=== PATIENT | female | born 1970 | race American Indian/Alaskan Native ===

== ENCOUNTER 2018-02-12 21:44 | Inpatient (IN) | payer MEDICAID, OTHER ==
[2018-02-12] MEDS ORDERED: Famotidine 20mg/50ml 20 MG in Premixed IV 50 EA IVPB STA (22:02)
--- NOTE | 2018-02-12 22:03 | ED PDOC ---
Arrival/HPI - General Chief Complaint: High Blood Pressure Time Seen by Provider: 02/12/18 22:02 Historian: Patient - History of Present Illness Narrative History of Present Illness (Text): 02/12/18 22:03 Preeti Ramos is a 47 year old female, whose past medical history includes hypertension on Clonidine and HCTZ, who presents to the Emergency department brought in under police custody complaining of vomiting. Patient states her first episode of vomiting was 4 days prior and states she has stopped drinking secondary to vomiting. Patient complaining of vomiting this morning. Patient notes she took Suboxone because she no longer uses Oxycodon. Patient denies any fever, chills, chest pain, shortness of breath, neck pain, headache, dizziness, or any other complaints. Symptom Onset: Gradual Symptom Course: Unchanged Activities at Onset: Light Context: Other (Police custody) Past Medical History - Provider Review Nursing Documentation Reviewed: Yes - Cardiac Hx Cardiac Disorders: Yes Hx Hypertension: Yes - Neurological Hx Seizures: Yes - Psychiatric Hx Substance Use: Yes Family/Social History - Physician Review Nursing Documentation Reviewed: Yes Family/Social History: Unknown Family HX Smoking Status: Heavy Smoker > 10 Cigarettes Daily Hx Alcohol Use: No Hx Substance Use: Yes Substance used: Noemy Allergies/Home Meds Allergies/Adverse Reactions: Allergies No Known Allergies Allergy (Verified 02/12/18 21:47) Review of Systems - Physician Review All systems were reviewed & negative as marked: Yes - Review of Systems Constitutional: Normal. absent: Fevers Eyes: Normal ENT: Normal Respiratory: Normal. absent: SOB, Cough Cardiovascular: Normal. absent: Chest Pain Gastrointestinal: Abdominal Pain, Nausea, Vomiting. absent: Diarrhea Genitourinary Female: Normal. absent: Dysuria, Hematuria, Urine Output Changes Musculoskeletal: Normal. absent: Back Pain, Neck Pain Skin: Normal. absent: Rash Neurological: Normal. absent: Headache, Dizziness Endocrine: Normal Hemo/Lymphatic: Normal Psychiatric: Normal Physical Exam Vital Signs Reviewed: Yes Vital Signs Temp Pulse Resp BP Pulse Ox 02/12/18 21:53 97.9 F 66 18 130/70 100 Temperature: Afebrile Blood Pressure: Normal Pulse: Regular Respiratory Rate: Normal Appearance: Positive for: Non-Toxic Pain Distress: Mild Mental Status: Positive for: Alert and Oriented X 3 - Systems Exam Head: Present: Atraumatic, Normocephalic Pupils: Present: PERRL Extroacular Muscles: Present: EOMI Conjunctiva: Present: Normal Mouth: Present: Dry, Normal Lips (Dry lips) Neck: Present: Normal Range of Motion. No: Meningeal Signs, MIDLINE TENDERNESS , Paraspinal Tenderness Respiratory/Chest: Present: Clear to Auscultation, Good Air Exchange. No: Respiratory Distress, Accessory Muscle Use Cardiovascular: Present: Regular Rate and Rhythm, Normal S1, S2. No: Murmurs Abdomen: Present: Tenderness (Tenderness to epigastric region). No: Distention , Peritoneal Signs Back: Present: Normal Inspection Upper Extremity: Present: Normal Inspection. No: Cyanosis, Edema Lower Extremity: Present: Normal Inspection. No: Edema Neurological: Present: GCS=15, CN II-XII Intact, Speech Normal Skin: Present: Warm, Dry, Normal Color. No: Rashes Psychiatric: Present: Alert, Oriented x 3, Normal Insight, Normal Concentration Medical Decision Making ED Course and Treatment: 02/12/18 22:03 Impression: 47 year old female brought in under police custody for abdominal pain and vomiting. Plan: -- CBC, CMP, lipase -- IV fluids -- Zofran -- Pepcid -- Reassess and disposition Progress Notes: 02/12/18 22:[address] Ramsey pending labs and reassess for final dispo. - Medication Orders Current Medication Orders: Discontinued Medications Famotidine 20 mg/ (Miscellaneous) 50 mls @ 100 mls/hr IVPB STAT STA Stop: 02/12/18 22:31 Ondansetron HCl (Zofran Inj) 4 mg IVP STAT STA Stop: 02/12/18 22:04 - Scribe Statement The provider has reviewed the documentation as recorded by the Pooja Monroe Provider Scribe Attestation: All medical record entries made by the Scribe were at my direction and personally dictated by me. I have reviewed the chart and agree that the record accurately reflects my personal performance of the history, physical exam, medical decision making, and the department course for this patient. I have also personally directed, reviewed, and agree with the discharge instructions and disposition. Disposition/Present on Arrival - Present on Arrival Any Indicators Present on Arrival: No History of DVT/PE: No History of Uncontrolled Diabetes: No Urinary Catheter: No History of Decub. Ulcer: No History Surgical Site Infection Following: None - Disposition Have Diagnosis and Disposition been Completed?: No Diagnosis: Substance abuse Disposition Time: 22:52 Condition: STABLE Referrals: Dre Huynh, [Primary Care Provider] - Follow up with primary Forms: [employer] (Greek)
--- NOTE | 2018-02-12 22:56 | ED PDOC ---
Physical Exam Vital Signs Reviewed: Yes Vital Signs Temp Pulse Resp BP Pulse Ox 02/13/18 02:14 148/75 02/12/18 21:53 97.9 F 66 18 130/70 100 Temperature: Afebrile Blood Pressure: Normal Pulse: Regular Respiratory Rate: Normal Appearance: Positive for: Non-Toxic, Comfortable Pain Distress: None Mental Status: Positive for: Alert and Oriented X 3 - Systems Exam Head: Present: Atraumatic, Normocephalic Pupils: Present: PERRL Extroacular Muscles: Present: EOMI Conjunctiva: Present: Normal Mouth: Present: Moist Mucous Membranes Neck: Present: Normal Range of Motion Respiratory/Chest: Present: Clear to Auscultation, Good Air Exchange. No: Respiratory Distress, Accessory Muscle Use Cardiovascular: Present: Regular Rate and Rhythm, Normal S1, S2. No: Murmurs Abdomen: Present: Tenderness (RLQ tenderness). No: Distention, Peritoneal Signs Back: Present: Normal Inspection Upper Extremity: Present: Normal Inspection. No: Cyanosis, Edema Lower Extremity: Present: Normal Inspection. No: Edema Neurological: Present: GCS=15, CN II-XII Intact, Speech Normal Skin: Present: Warm, Dry, Normal Color. No: Rashes Psychiatric: Present: Alert, Oriented x 3, Normal Insight, Normal Concentration Medical Decision Making ED Course and Treatment: 02/12/18 23:00 Case endorsed to me by Dr. Perez, pending labs, re-evaluation, and disposition. Pt, whose past medical history includes seizure and hypertension on Clonidine and HCTZ, presented under police custody for vomiting x4 days with associated abdominal pain. 02/13/18 03:12 CT Abdomen and Pelvis shows: Lung bases: Small cysts or bullae are visualized within the right lung. Mediastinum: There is a small hiatal hernia. ABDOMEN: Liver: No hepatic mass. There is low density identified within the medial segment of the left lobe of the liver adjacent to the falciform ligament. This is a common location for fatty infiltration. Gallbladder and bile ducts: There is a tiny isodense noncalcified gallstone or polyp within the gallbladder. Pancreas: Contiguous with the tail of the pancreas and isodense to the spleen, there is a 2.2 x 2.0 cm possible splenule, although a pancreatic lesion is difficult to exclude. Spleen: See above. Adrenals: There is a 2.2 x 1.7 cm isodense left adrenal nodule. Kidneys and ureters: A few small hypodense left renal cysts are identified. One of these cysts at the lower pole the left kidney measures 1.0 cm. Stomach and bowel: No obstruction. No mucosal thickening. PELVIS: Appendix: The appendix is mildly distended with gas measuring 7-8 mm. There is no surrounding acute inflammatory change. Bladder: There is nonspecific wall thickening of the bladder. Reproductive: A few masses are identified within the uterine wall, the largest on the right side measuring 3.8 x 2.7 x 3.2 cm. These masses are suggestive of fibroids. ABDOMEN and PELVIS: Intraperitoneal space: No free air. Bones/joints: Degenerative changes are visualized at L4-5. There is posterior disc bulging at L5-S1. Soft tissues: There is minimal herniation of fat into the umbilicus. Vasculature: There is mild atherosclerosis of the aortic bifurcation. No abdominal aortic aneurysm. Lymph nodes: No enlarged lymph nodes. IMPRESSION: 1. There is a 2.2 x 1.7 cm isodense left adrenal nodule. This can be further evaluated with a nonemergent MRI with/without contrast. 2. A few masses are identified within the uterine wall, suggestive of fibroids. 3. The appendix is mildly distended with gas measuring 7-8 mm. There is no surrounding acute inflammatory change. Clinical correlation is recommended. 4. A few small hypodense left renal cysts are identified. 5. There is a tiny noncalcified gallstone or polyp within the gallbladder. 6. There is nonspecific wall thickening of the bladder. 7. Contiguous with the tail of the pancreas and isodense to the spleen, there is a 2.2 x 2.0 cm possible splenule, although a pancreatic lesion is difficult to exclude. This can further evaluated with MRI. 8. Additional CT findings described above. 02/13/18 03:[address] scan results noted. On examination, pt with RLQ tenderness, clinically suggestive of appendicitis. 02/13/18 04:27 Case discussed with director surgical extension forester, who is aware and agrees to evaluate pt. Call placed to Dr. Delcid's service. 02/13/18 05:01 Case discussed with medical intern extension forester, who is aware and agrees with plan. 02/13/18 05:[address] Delcid, surgeon extension forester, made aware. States he will consult on case. 02/13/18 05:[address] Amrit Saavedra, who is aware and agrees with plan. Accepts pt in to hospitalist service. Pt will go to [facility] observation abdominal pain, r /o appendicitis. - Lab Interpretations Lab Results: 02/12/18 22:53 02/12/18 22:53 Lab Results 02/12/18 23:30: Urine Color Yellow, Urine Appearance Sl cloudy, Urine pH 6.0, Ur Specific [place] >= 1.030, Urine Protein 100 H, Urine Glucose (UA) Negative, Urine Ketones 40 H, Urine Blood Moderate H, Urine Nitrate Negative, Urine Bilirubin Moderate H, Urine Urobilinogen 0.2, Ur Leukocyte Esterase Small H, Urine RBC 2 - 5, Urine WBC 5 - 10, Ur Epithelial Cells 4 - 5, Urine Bacteria Small, Urine Other Trichomonas 02/12/18 22:53: Sodium 139, Potassium 3.6, Chloride 101, Carbon Dioxide 21, Anion Gap 20, BUN 18, Creatinine 1.0, Est GFR ( Amer) > 60, Est GFR (Non- Af Amer) 59, Random Glucose 95, Calcium 10.1, Total Bilirubin 0.9, AST 46 H, ALT 21, Alkaline Phosphatase 150 H, Total Protein 8.5 H, Albumin 4.7, Globulin 3.8, Albumin/Globulin Ratio 1.2, Lipase 19 L 02/12/18 22:53: WBC 14.5 H, RBC 4.75, Hgb 13.6, Hct 40.6, MCV 85.5, MCH 28.6, MCHC 33.5, RDW 14.7 H, Plt Count 397, MPV 9.5, Gran % 81.4 H, Lymph % (Auto) 12.9 L, [place] % (Auto) 5.5, Eos % (Auto) 0.1 L, Baso % (Auto) 0.1, Gran # 11.75 H , Lymph # (Auto) 1.9, [place] # (Auto) 0.8 H, Eos # (Auto) 0.0, Baso # (Auto) 0.02 I have reviewed the lab results: Yes - RAD Interpretation Radiology Orders: 02/13/18 00:46 ABD & PELVIS IV CONTRAST ONLY [CT] Stat Lens Cutter: Radiologist - Medication Orders Current Medication Orders: Acetaminophen (Tylenol 325mg Tab) 650 mg PO Q4 PRN PRN Reason: Pain, Mild (1-3) Docusate Sodium (Colace) 100 mg PO BID HORACE Lactated Ringer's (Lactated Ringer's) 1,000 mls @ 110 mls/hr IV .Q9H6M HORACE Ketorolac Tromethamine (Toradol) 15 mg IVP Q6 PRN PRN Reason: Pain, moderate (4-7) Ondansetron HCl (Zofran Inj) 4 mg IVP Q4 PRN PRN Reason: Nausea/Vomiting Discontinued Medications Famotidine 20 mg/ (Miscellaneous) 50 mls @ 100 mls/hr IVPB STAT STA Stop: 02/12/18 22:31 Last Admin: 02/12/18 22:17 Dose: 100 mls/hr eMAR Start Stop Document 02/12/18 22:17 SS (Rec: 02/12/18 23:17 SS [id number]) Intravenous Solution Start Date 02/12/18 Start Time 22:17 End Date 02/12/18 End time 22:47 Total Infusion Time 30 Metronidazole (Flagyl) 500 mg in 100 mls @ 100 mls/hr IVPB STAT STA PRN Reason: Protocol Stop: 02/13/18 04:44 Last Admin: 02/13/18 05:15 Dose: 100 mls/hr eMAR Start Stop Document 02/13/18 05:15 SS (Rec: 02/13/18 05:15 SS [id number]) Intravenous Solution Start Date 02/13/18 Start Time 05:15 End Date 02/13/18 End time 06:15 Total Infusion Time 60 Ceftriaxone Sodium (Rocephin 1 Gram Ivpb) 1 gm in 100 mls @ 200 mls/hr IV ONCE STA PRN Reason: Protocol Stop: 02/13/18 04:15 Last Admin: 02/13/18 04:25 Dose: 200 mls/hr eMAR Start Stop Document 02/13/18 04:25 SS (Rec: 02/13/18 04:25 SS [id number]) Intravenous Solution Start Date 02/13/18 Start Time 04:25 End Date 02/13/18 End time 04:55 Total Infusion Time 30 Ondansetron HCl (Zofran Inj) 4 mg IVP STAT STA Stop: 02/12/18 22:04 Last Admin: 02/12/18 22:17 Dose: 4 mg IVP Administration Document 02/12/18 22:17 SS (Rec: 02/12/18 23:17 SS [id number]) Charges for Administration # of IVP Administrations 1 Disposition/Present on Arrival - Present on Arrival Any Indicators Present on Arrival: No History of DVT/PE: No History of Uncontrolled Diabetes: No Urinary Catheter: No History of Decub. Ulcer: No History Surgical Site Infection Following: None - Disposition Have Diagnosis and Disposition been Completed?: Yes Diagnosis: Abdominal pain Disposition: HOSPITALIZED Disposition Time: 05:07 Isolation: Airborne Patient Problems: Current Active Problems Problem Status Onset Substance abuse Acute Condition: STABLE
[2018-02-12 22:58] LABS: BASO # 0.02 K/mm3 (0.0-2.0); BASO % 0.1 % (0.0-3.0); EOS % 0.1 % (1.5-5.0); GRAN # 11.75 (1.4-6.5); GRAN % 81.4 % (50.0-68.0); HEMOGLOBIN 13.6 g/dL (12.0-16.0); LYMPH # 1.9 (1.2-3.4); LYMPH % 12.9 % (22.0-35.0); MEAN CELL VOLUME 85.5 fl (80.0-105.0); MEAN CORPUSCULAR HEMOGLOBIN 28.6 pg (25.0-35.0); MEAN CORPUSCULAR HGB CONC 33.5 g/dl (31.0-37.0); MEAN PLATELET VOLUME 9.5 fl (7.0-11.0); MONO # 0.8 (0.1-0.6); MONO % 5.5 % (1.0-6.0); RBC 4.75 10^6/uL (3.5-6.1); RED CELL DISTRIBUTION WIDTH 14.7 % (11.5-14.5); WHITE BLOOD COUNT 14.5 10^3/ul (4.5-11.0)
[2018-02-12 23:11] LABS: ALB/GLOB RATIO 1.2 (1.1-1.8); ALBUMIN 4.7 g/dL (3.0-4.8); ALT/SGPT 21 U/L (7-56); AST/SGOT 46 U/L (14-36); BLOOD UREA NITROGEN 18 mg/dL (7-21); CALCIUM 10.1 mg/dL (8.4-10.5); GFR AFRICAN-AMERICAN > 60; GFR NON-AFRICAN AMERICAN 59; LIPASE 19 U/L (23-300)
[2018-02-12 23:52] LABS: URINE BILIRUBIN MODERATE (NEGATIVE); URINE BLOOD MODERATE (NEGATIVE); URINE GLUCOSE (UA) NEGATIVE (NEGATIVE); URINE LEUKOCYTE ESTERASE SMALL Leu/uL (NEGATIVE); URINE PROTEIN 100 mg/dL (<30 mg/dL); URINE UROBILINOGEN 0.2 E.U./dL (<1 E.U./dL)
[2018-02-12 23:55] LABS: URINE APPEARANCE SL CLOUDY (CLEAR); URINE COLOR YELLOW (YELLOW)
[2018-02-13 00:08] LABS: URINE BACTERIA SMALL (NEG)
[2018-02-13] MEDS ORDERED: Iohexol 350 MG/100 ML VIAL ONE (01:17)
--- NOTE | 2018-02-13 03:03 | CT ---
EXAM: CT Abdomen and Pelvis With Intravenous Contrast EXAM DATE/TIME: 02/13/2018 12:46 AM CLINICAL HISTORY: The patient age is 47 years old and is female; Pain; Abdominal pain Facility exam id and description: Ct abdpelciv abd pelvis iv contrast only TECHNIQUE: Axial computed tomography images of the abdomen and pelvis with intravenous contrast. All CT scans at this facility use at least one of these dose optimization techniques: automated exposure control; mA and/or kV adjustment per patient size (includes targeted exams where dose is matched to clinical indication); or iterative reconstruction. Coronal and sagittal reformatted images were created and reviewed. COMPARISON: No relevant prior studies available. FINDINGS: Lung bases: Small cysts or bullae are visualized within the right lung. Mediastinum: There is a small hiatal hernia. ABDOMEN: Liver: No hepatic mass. There is low density identified within the medial segment of the left lobe of the liver adjacent to the falciform ligament. This is a common location for fatty infiltration. Gallbladder and bile ducts: There is a tiny isodense noncalcified gallstone or polyp within the gallbladder. Pancreas: Contiguous with the tail of the pancreas and isodense to the spleen, there is a 2.2 x 2.0 cm possible splenule, although a pancreatic lesion is difficult to exclude. Spleen: See above. Adrenals: There is a 2.2 x 1.7 cm isodense left adrenal nodule. Kidneys and ureters: A few small hypodense left renal cysts are identified. One of these cysts at the lower pole the left kidney measures 1.0 cm. Stomach and bowel: No obstruction. No mucosal thickening. PELVIS: Appendix: The appendix is mildly distended with gas measuring 7-8 mm. There is no surrounding acute inflammatory change. Bladder: There is nonspecific wall thickening of the bladder. Reproductive: A few masses are identified within the uterine wall, the largest on the right side measuring 3.8 x 2.7 x 3.2 cm. These masses are suggestive of fibroids. ABDOMEN and PELVIS: Intraperitoneal space: No free air. Bones/joints: Degenerative changes are visualized at L4-5. There is posterior disc bulging at L5-S1. Soft tissues: There is minimal herniation of fat into the umbilicus. Vasculature: There is mild atherosclerosis of the aortic bifurcation. No abdominal aortic aneurysm. Lymph nodes: No enlarged lymph nodes. IMPRESSION: 1. There is a 2.2 x 1.7 cm isodense left adrenal nodule. This can be further evaluated with a nonemergent MRI with/without contrast. 2. A few masses are identified within the uterine wall, suggestive of fibroids. 3. The appendix is mildly distended with gas measuring 7-8 mm. There is no surrounding acute inflammatory change. Clinical correlation is recommended. 4. A few small hypodense left renal cysts are identified. 5. There is a tiny noncalcified gallstone or polyp within the gallbladder. 6. There is nonspecific wall thickening of the bladder. 7. Contiguous with the tail of the pancreas and isodense to the spleen, there is a 2.2 x 2.0 cm possible splenule, although a pancreatic lesion is difficult to exclude. This can further evaluated with MRI. 8. Additional CT findings described above.
[2018-02-13] MEDS ORDERED: metroNIDAZOLE IV 500 mg/100 ml 500 MG/100 ML BAG IVPB STA (03:45)
[2018-02-13] MEDS ORDERED: cefTRIAXone 1 gm 1 GM/100 ML BAG IV STA (03:46)
--- NOTE | 2018-02-13 05:09 | CP.PCM.CON ---
<Stephany Galdamez - Last Filed: 02/13/18 08:26> History of Present Illness - History of Present Illness History of Present Illness: GENERAL SURGERY CONSULT NOTE FOR DR. DELCID 47yo F with PMHx of HTN, epilepsy, opiod abuse presents to the ED with abdominal pain. She states that her pain began about 4 days ago and she had some vomiting at that time. No vomiting today. Has not had a BM in 2 days. Her pain is located in the suprapubic, LLQ, RLQ area. Pt states that she hasn't eaten or drank anything in 4 days due to using "Noemy". Pt states that she went to [facility] 8 days ago for similar symptoms. Per the pt, they wanted to do a CT but she signed out AMA before the CT was done. Pt is now brought in by police for medical clearance. PMHx: HTN, epilepsy Surgeries: none Allergies: none Medications: clonidine, lisinopril, HCTZ Social history: denies etoh, smokes 1/2 PPD, uses Noemy Review of Systems - Review of Systems All systems: reviewed and no additional remarkable complaints except (as per hpi ) Past Patient History - Past Social History Smoking Status: Heavy Smoker > 10 Cigarettes Daily Alcohol: None Drugs: Opiates - CARDIAC Hx Cardiac Disorders: Yes Hx Hypertension: Yes - NEUROLOGICAL Hx Seizures: Yes - PSYCHIATRIC Hx Substance Use: Yes Meds Allergies/Adverse Reactions: Allergies Allergy/AdvReac Type Severity Reaction Status Date / Time No Known Allergies Allergy Verified 02/12/18 21:47 Physical Exam - Constitutional Appears: Well, Non-toxic - Head Exam Head Exam: ATRAUMATIC, NORMAL INSPECTION - Eye Exam Eye Exam: EOMI, Normal appearance - Respiratory Exam Respiratory Exam: NORMAL BREATHING PATTERN. absent: Respiratory Distress - Cardiovascular Exam Cardiovascular Exam: +S1, +S2 - GI/Abdominal Exam GI & Abdominal Exam: Soft, Tenderness (mild tenderness suprapubic and LLQ). absent: Distended, Firm, Guarding, Rebound, Rigid Additional comments: No McBurney point tenderness, Negative Rovsing sign - Neurological Exam Neurological exam: Alert, Oriented x3 - Psychiatric Exam Psychiatric exam: Normal Affect, Normal Mood - Skin Skin Exam: Dry, Normal Color, Warm Results - Vital Signs Recent Vital Signs: Last Vital Signs Temp 97.9 F 02/12/18 21:53 Pulse 66 07/02/18 21:53 Resp 18 02/12/18 21:53 BP 148/75 02/13/18 02:14 Pulse Ox 100 02/12/18 21:53 - Labs Result Diagrams: 02/13/18 08:00 02/12/18 22:53 Labs: Laboratory Results - last 24 hr 02/12/18 02/12/18 02/12/18 22:53 22:53 23:30 WBC 14.5 H RBC 4.75 Hgb 13.6 Hct 40.6 MCV 85.5 MCH 28.6 MCHC 33.5 RDW 14.7 H Plt Count 397 MPV 9.5 Gran % 81.4 H Lymph % (Auto) 12.9 L [place] % (Auto) 5.5 Eos % (Auto) 0.1 L Baso % (Auto) 0.1 Gran # 11.75 H Lymph # (Auto) 1.9 [place] # (Auto) 0.8 H Eos # (Auto) 0.0 Baso # (Auto) 0.02 Sodium 139 Potassium 3.6 Chloride 101 Carbon Dioxide 21 Anion Gap 20 BUN 18 Creatinine 1.0 Est GFR ( Amer) > 60 Est GFR (Non-Af Amer) 59 Random Glucose 95 Calcium 10.1 Total Bilirubin 0.9 AST 46 H ALT 21 Alkaline Phosphatase 150 H Total Protein 8.5 H Albumin 4.7 Globulin 3.8 Albumin/Globulin Ratio 1.2 Lipase 19 L Urine Color Yellow Urine Appearance Sl cloudy Urine pH 6.0 Ur Specific Lindsay >= 1.030 Urine Protein 100 H Urine Glucose (UA) Negative Urine Ketones 40 H Urine Blood Moderate H Urine Nitrate Negative Urine Bilirubin Moderate H Urine Urobilinogen 0.2 Ur Leukocyte Esterase Small H Urine RBC 2 - 5 Urine WBC 5 - 10 Ur Epithelial Cells 4 - 5 Urine Bacteria Small Urine Other Trichomonas Assessment & Plan - Assessment and Plan (Free Text) Assessment: 47yo F with PMHx of HTN, epilepsy, opiod abuse presents to the ED with abdominal pain. Surgery consulted for rule out appendicitis - Afebrile, VSS - Leukocytosis WBC 14.5 - CT: appendix is mildly distended with gas measuring 7-8 mm. There are no surrounding acute inflammatory change. There is nonspecific wall thickening of the bladder. A few masses within the uterine wall suggesting fibroids, the largest on the right side measuring 3.8 x 2.7 x 3.2 cm. - Pt not tender in RLQ, pt tender more suprapubic/LLQ - Unlikely appendicitis given location of pain and tenderness and lack of inflammatory changes around appendix on imaging. Pt's pain may be related to withdrawal, UTI, fibroids - Serial abdominal exams - Discussed plan with Dr. Farhana Galdamez PGY-4 <Nura Delcid - Last Filed: 02/15/18 15:14> Meds - Medications Medications: Current Medications Acetaminophen (Tylenol 325mg Tab) 650 mg PO Q4 PRN PRN Reason: Pain, Mild (1-3) Last Admin: 02/15/18 04:20 Dose: 650 mg Clonazepam (Klonopin) 0.5 mg PO BID PRN; Protocol PRN Reason: opitate withdrawl symptoms Last Admin: 02/15/18 15:03 Dose: 0.5 mg Hydralazine HCl (Apresoline) 10 mg IVP Q6 PRN PRN Reason: Systolic blood pressure >180 Hydrochlorothiazide (Hydrodiuril) 25 mg PO DAILY [facility] Last Admin: 02/15/18 10:31 Dose: 25 mg Ketorolac Tromethamine (Toradol) 15 mg IVP Q6 PRN PRN Reason: Pain, moderate (4-7) Last Admin: 02/14/18 06:10 Dose: 15 mg Lisinopril (Zestril) 10 mg PO DAILY [facility] Last Admin: 02/15/18 10:31 Dose: 10 mg Multivitamins/Minerals (Therapeutic-M Tab) 1 tab PO 0800 [facility] Ondansetron HCl (Zofran Inj) 4 mg IVP Q4 PRN PRN Reason: Nausea/Vomiting Last Admin: 02/14/18 09:02 Dose: 4 mg Pantoprazole Sodium (Protonix Ec Tab) 20 mg PO 0600 [facility] Results - Vital Signs Recent Vital Signs: Last Vital Signs Temp 98.5 F 02/15/18 06:00 Pulse 45 L 02/15/18 14:00 Resp 18 02/15/18 06:00 BP 172/85 H 02/15/18 14:00 Pulse Ox 99 02/15/18 06:00 - Labs Result Diagrams: 02/14/18 07:20 02/14/18 07:20 Attending/Attestation - Attestation I have personally seen and examined this patient.: Yes I have fully participated in the care of the patient.: Yes I have reviewed all pertinent clinical information: Yes Notes (Text): Pt was seen and examined at bedside Agree with above note and assessment Pt with lower abdominal pain since last 3 weeks Denies any complaints at present Labs and radiology reviewed Ass: Abdominal Pain, UTI Plan : IV antibiotics c.w current mx No General surgical intervention required at present Plan d.w pt in detail Risk and benefit explained in detail.
--- NOTE | 2018-02-13 06:00 | CP.PCM.HP ---
<Daljit Waite - Last Filed: 02/13/18 09:32> History of Present Illness - History of Present Illness History of Present Illness: CC: Abdominal pain HPI: Ms. Ramos is a 47 y.o female with a past medical history of hypertension, drug abuse, and epilepsy who presents to us from correction due to 2 days of complaints of abdominal pain. Patient admits to oxycodone addiction, from which she feels she is withdrawing. Of note, patient was admitted to [facility] 2 weeks ago for similar complaints, but left AMA before an abdominal CT could be performed. Patient states she has not had any pills since coming to correction a few days ago. PMHx: HTN, drug abuse and epilepsy PSHx: none Allergies: NKDA Social: abuse of oxycodone, 1/2 pack tobacco per day for 2 years, would snort heroin in the past Family Hx: DM Meds: Dilantin 300, Lisinopril 15, clonidine 0.2 TID, but need to confirm dosages before beginning therapy Present on Admission - Present on Admission Any Indicators Present on Admission: No Review of Systems - Review of Systems Systems not reviewed;Unavailable: Acuity of Condition - Constitutional Constitutional: Chills, Headache, Malaise - Gastrointestinal Gastrointestinal: absent: Change in Stool Character, Diarrhea, Melena - Genitourinary Genitourinary: absent: Pyuria, Voiding Freq/Small Amts - Menstruation Menstruation: Currently Menstual, Normal Menses Past Patient History - Past Social History Smoking Status: Heavy Smoker > 10 Cigarettes Daily Alcohol: None Drugs: Opiates - CARDIAC Hx Cardiac Disorders: Yes Hx Hypertension: Yes - NEUROLOGICAL Hx Seizures: Yes - PSYCHIATRIC Hx Substance Use: Yes Meds Home Medications: Home Medication List Medication Instructions Recorded Confirmed Type cloNIDine [Catapres] 0.2 mg PO BID 7 Days tab 02/14/18 Rx hydroCHLOROthiazide [Hydrodiuril] 25 mg PO DAILY 7 Days tab 02/14/18 Rx Allergies/Adverse Reactions: Allergies Allergy/AdvReac Type Severity Reaction Status Date / Time No Known Allergies Allergy Verified 02/12/18 21:47 Physical Exam - Constitutional Appears: Agitated - Head Exam Head Exam: ATRAUMATIC, NORMOCEPHALIC - Eye Exam Eye Exam: Normal appearance Pupil Exam: NORMAL ACCOMODATION, PERRL - Respiratory Exam Respiratory Exam: Clear to Auscultation Bilateral, NORMAL BREATHING PATTERN. absent: Chest Wall Tenderness - Cardiovascular Exam Cardiovascular Exam: +S1, +S2. absent: Clicks - GI/Abdominal Exam GI & Abdominal Exam: Guarding, Rebound, Rigid Results - Vital Signs Recent Vital Signs: Last Vital Signs Temp 97.9 F 02/12/18 21:53 Pulse 70 02/13/18 05:33 Resp 18 02/13/18 05:33 BP 100/60 02/13/18 05:33 Pulse Ox 98 02/13/18 05:33 - Labs Result Diagrams: 02/13/18 08:00 02/13/18 08:00 Assessment & Plan - Assessment and Plan (Free Text) Plan: Ms. Ramos is a 47 y.o female with a past medical history of hypertension, drug abuse, and epilepsy who presents to us from correction due to 2 days of complaints of abdominal pain. Patient admits to oxycodone addiction, from which she feels she is withdrawing. Of note, patient was admitted to [facility] 2 weeks ago for similar complaints, but left AMA before an abdominal CT could be performed. Patient states she has not had any pills since coming to correction a few days ago. Abdominal pain secondary to uterine fibroids vs appendicitis vs opioid withdrawal f/u blood culture and urine culture Surgery consult - empiric Ceftriaxone begun Medication noncompliance Tobacco, substance abuse Hx of HTN Hx of epilepsy - vitals q8 to evaluate electrolytes Confirm home meds- Dilantin 300, clonidine 0.2, Lisinopril 15 mg <Kay Saavedra N - Last Filed: 02/14/18 18:54> Results - Vital Signs Recent Vital Signs: Last Vital Signs Temp 98.5 F 02/14/18 06:00 Pulse 43 L 02/14/18 16:57 Resp 18 02/14/18 06:00 BP 138/60 02/14/18 16:57 Pulse Ox 100 02/14/18 06:00 - Labs Result Diagrams: 02/14/18 07:20 02/14/18 07:20 Labs: Laboratory Results - last 24 hr 02/14/18 02/14/18 07:20 07:20 WBC 9.8 D RBC 4.18 Hgb 11.6 L Hct 35.9 L MCV 85.9 MCH 27.8 MCHC 32.3 RDW 14.7 H Plt Count 325 MPV 9.0 Gran % 71.2 H Lymph % (Auto) 23.1 [place] % (Auto) 5.2 Eos % (Auto) 0.3 L Baso % (Auto) 0.2 Gran # 6.96 H Lymph # (Auto) 2.3 [place] # (Auto) 0.5 Eos # (Auto) 0.0 Baso # (Auto) 0.02 Sodium 139 Potassium 3.6 Chloride 104 Carbon Dioxide 24 Anion Gap 15 BUN 15 Creatinine 0.8 Est GFR ( Amer) > 60 Est GFR (Non-Af Amer) > 60 Random Glucose 105 Calcium 9.4 Total Bilirubin 0.5 AST 18 ALT 18 Alkaline Phosphatase 118 Total Protein 7.4 Albumin 4.0 Globulin 3.3 Albumin/Globulin Ratio 1.2
[2018-02-13] MEDS: Lactated Ringer's 1,000 ML IV SCH ×2 (06:15→21:45)
[2018-02-13 08:09] VITALS: BMI 30.9
[2018-02-13 08:15] LABS: BASO # 0.02 K/mm3 (0.0-2.0); BASO % 0.1 % (0.0-3.0); GRAN # 11.86 (1.4-6.5); GRAN % 82.2 % (50.0-68.0); HEMOGLOBIN 12.8 g/dL (12.0-16.0); LYMPH % 13.7 % (22.0-35.0); MEAN CELL VOLUME 85.9 fl (80.0-105.0); MEAN CORPUSCULAR HEMOGLOBIN 28.3 pg (25.0-35.0); MEAN CORPUSCULAR HGB CONC 32.9 g/dl (31.0-37.0); MEAN PLATELET VOLUME 9.2 fl (7.0-11.0); MONO # 0.6 (0.1-0.6); RBC 4.53 10^6/uL (3.5-6.1); RED CELL DISTRIBUTION WIDTH 14.9 % (11.5-14.5); WHITE BLOOD COUNT 14.4 10^3/ul (4.5-11.0)
[2018-02-13 08:35] LABS: ALB/GLOB RATIO 1.2 (1.1-1.8); ALBUMIN 4.5 g/dL (3.0-4.8); ALT/SGPT 26 U/L (7-56); AST/SGOT 20 U/L (14-36); BLOOD UREA NITROGEN 19 mg/dL (7-21); CALCIUM 9.8 mg/dL (8.4-10.5); GFR AFRICAN-AMERICAN > 60; GFR NON-AFRICAN AMERICAN 59
--- NOTE | 2018-02-13 09:27 | CP.PCM.PN ---
<Danielle Hdez - Last Filed: 02/13/18 15:58> Subjective - Date & Time of Evaluation Date of Evaluation: 02/13/18 Time of Evaluation: 09:19 - Subjective Subjective: General Surgery Progress Note for Dr. Delcid Patient seen and examined at bedside. Pt continues have some abdominal pain but denies pain in the RLQ. She expressed concern of receiving her hypertension and antibiotic medications. No acute events overnight. Pt complained of nausea/ vomiting but is tolerating a clear liquid diet this am. Denies fevers, chills, dizziness, headache, constipation, diarrhea or dysuria. Objective - Vital Signs/Intake and Output Vital Signs (last 24 hours): Temp Pulse Resp BP Pulse Ox 98.2 F 60 18 144/78 100 02/13/18 07:17 02/13/18 07:17 02/13/18 07:17 02/13/18 07:17 02/13/18 07:17 - Medications Medications: Current Medications Acetaminophen (Tylenol 325mg Tab) 650 mg PO Q4 PRN PRN Reason: Pain, Mild (1-3) Clonazepam (Klonopin) 0.5 mg PO BID PRN; Protocol PRN Reason: opitate withdrawl symptoms Docusate Sodium (Colace) 100 mg PO BID [facility] Lactated Ringer's (Lactated Ringer's) 1,000 mls @ 110 mls/hr IV .Q9H6M [facility] Last Admin: 02/13/18 06:15 Dose: 110 mls/hr Ceftriaxone Sodium (Rocephin 1 Gram Ivpb) 1 gm in 100 mls @ 100 mls/hr IVPB DAILY [facility] PRN Reason: Protocol Ketorolac Tromethamine (Toradol) 15 mg IVP Q6 PRN PRN Reason: Pain, moderate (4-7) Ondansetron HCl (Zofran Inj) 4 mg IVP Q4 PRN PRN Reason: Nausea/Vomiting - Labs Labs: 02/13/18 08:00 02/13/18 08:00 - Constitutional Appears: Well, No Acute Distress - Head Exam Head Exam: NORMAL INSPECTION - Eye Exam Eye Exam: Normal appearance - ENT Exam ENT Exam: Mucous Membranes Moist - Respiratory Exam Respiratory Exam: NORMAL BREATHING PATTERN - Cardiovascular Exam Cardiovascular Exam: REGULAR RHYTHM - GI/Abdominal Exam GI & Abdominal Exam: Soft, Tenderness (LLQ), Normal Bowel Sounds. absent: Distended - Extremities Exam Extremities Exam: Normal Inspection. absent: Calf Tenderness - Neurological Exam Neurological Exam: Alert, Awake - Psychiatric Exam Psychiatric exam: Normal Affect, Normal Mood. absent: Flat Affect Assessment and Plan - Assessment and Plan (Free Text) Assessment: 47 y/o F with abdominal pain, r/o appendicitis Plan: - Unlikely pain is due to appendix - No surgical intervention at this time - Advance diet as tolerated - Discussed with Dr. Farhana Hdez DO PGY1 <Nura Delcid - Last Filed: 02/15/18 15:15> Objective - Vital Signs/Intake and Output Vital Signs (last 24 hours): Temp Pulse Resp BP Pulse Ox 98.5 F 45 L 18 172/85 H 99 02/15/18 06:00 02/15/18 14:00 02/15/18 06:00 02/15/18 14:00 02/15/18 06:00 Intake and Output: 02/15/18 02/15/18 06:59 18:59 Intake Total 660 Balance 660 - Medications Medications: Current Medications Acetaminophen (Tylenol 325mg Tab) 650 mg PO Q4 PRN PRN Reason: Pain, Mild (1-3) Last Admin: 02/15/18 04:20 Dose: 650 mg Clonazepam (Klonopin) 0.5 mg PO BID PRN; Protocol PRN Reason: opitate withdrawl symptoms Last Admin: 02/15/18 15:03 Dose: 0.5 mg Hydralazine HCl (Apresoline) 10 mg IVP Q6 PRN PRN Reason: Systolic blood pressure >180 Hydrochlorothiazide (Hydrodiuril) 25 mg PO DAILY [facility] Last Admin: 02/15/18 10:31 Dose: 25 mg Ketorolac Tromethamine (Toradol) 15 mg IVP Q6 PRN PRN Reason: Pain, moderate (4-7) Last Admin: 02/14/18 06:10 Dose: 15 mg Lisinopril (Zestril) 10 mg PO DAILY [facility] Last Admin: 02/15/18 10:31 Dose: 10 mg Multivitamins/Minerals (Therapeutic-M Tab) 1 tab PO 0800 [facility] Ondansetron HCl (Zofran Inj) 4 mg IVP Q4 PRN PRN Reason: Nausea/Vomiting Last Admin: 02/14/18 09:02 Dose: 4 mg Pantoprazole Sodium (Protonix Ec Tab) 20 mg PO 0600 [facility] - Labs Labs: 02/14/18 07:20 02/14/18 07:20 Attending/Attestation - Attestation I have personally seen and examined this patient.: Yes I have fully participated in the care of the patient.: Yes I have reviewed all pertinent clinical information, including history, physical exam and plan: Yes Notes (Text): Pt was seen and examined at bedside Agree with above note and assessment Pt with lower abdominal pain since last 3 weeks Denies any complaints at present Labs and radiology reviewed Ass: Abdominal Pain, UTI, NO clinical evidence of appendicitis Plan : IV antibiotics c.w current mx No General surgical intervention required at present Plan d.w pt in detail Risk and benefit explained in detail.
[2018-02-13] MEDS ORDERED: cefTRIAXone 1 gm 1 GM/100 ML BAG IVPB SCH (10:00)
[2018-02-14] MEDS ORDERED: Lactated Ringer's 1,000 ML IV SCH (06:08)
[2018-02-14] MEDS: Lactated Ringer's 1,000 ML IV SCH (06:12)
[2018-02-14 07:36] LABS: BASO # 0.02 K/mm3 (0.0-2.0); BASO % 0.2 % (0.0-3.0); EOS % 0.3 % (1.5-5.0); GRAN # 6.96 (1.4-6.5); GRAN % 71.2 % (50.0-68.0); HEMOGLOBIN 11.6 g/dL (12.0-16.0); LYMPH # 2.3 (1.2-3.4); LYMPH % 23.1 % (22.0-35.0); MEAN CELL VOLUME 85.9 fl (80.0-105.0); MEAN CORPUSCULAR HEMOGLOBIN 27.8 pg (25.0-35.0); MEAN CORPUSCULAR HGB CONC 32.3 g/dl (31.0-37.0); MONO # 0.5 (0.1-0.6); MONO % 5.2 % (1.0-6.0); RBC 4.18 10^6/uL (3.5-6.1); RED CELL DISTRIBUTION WIDTH 14.7 % (11.5-14.5); WHITE BLOOD COUNT 9.8 10^3/ul (4.5-11.0)
[2018-02-14 07:46] LABS: ALB/GLOB RATIO 1.2 (1.1-1.8); ALT/SGPT 18 U/L (7-56); AST/SGOT 18 U/L (14-36); BLOOD UREA NITROGEN 15 mg/dL (7-21); CALCIUM 9.4 mg/dL (8.4-10.5); GFR AFRICAN-AMERICAN > 60; GFR NON-AFRICAN AMERICAN > 60
--- NOTE | 2018-02-14 08:50 | CP.PCM.PN ---
<Renuka Saldanaaf - Last Filed: 02/14/18 08:47> Subjective - Date & Time of Evaluation Date of Evaluation: 02/14/18 Time of Evaluation: 08:47 - Subjective Subjective: Surgery: Dr. Delcid Pt seen and examined. No acute overnight events. States she's feeling better and her abdominal pain has resolved. She is tolerating her liquid diet & wants to eat solid food. Denies N/V, F/C. Objective - Vital Signs/Intake and Output Vital Signs (last 24 hours): Temp Pulse Resp BP Pulse Ox 98.5 F 48 L 18 190/84 H 100 02/14/18 06:00 02/14/18 08:39 02/14/18 06:00 02/14/18 08:39 02/14/18 06:00 Intake and Output: 02/14/18 02/14/18 06:59 18:59 Intake Total 1200 Balance 1200 - Medications Medications: Current Medications Acetaminophen (Tylenol 325mg Tab) 650 mg PO Q4 PRN PRN Reason: Pain, Mild (1-3) Clonazepam (Klonopin) 0.5 mg PO BID PRN; Protocol PRN Reason: opitate withdrawl symptoms Last Admin: 02/14/18 02:18 Dose: 0.5 mg Clonidine HCl (Catapres) 0.3 mg PO TID [facility] Docusate Sodium (Colace) 100 mg PO BID [facility] Last Admin: 02/13/18 18:40 Dose: Not Given Hydrochlorothiazide (Hydrodiuril) 25 mg PO DAILY [facility] Ketorolac Tromethamine (Toradol) 15 mg IVP Q6 PRN PRN Reason: Pain, moderate (4-7) Last Admin: 02/14/18 06:10 Dose: 15 mg Lisinopril (Zestril) 20 mg PO DAILY [facility] Multivitamins/Minerals (Therapeutic-M Tab) 1 tab PO 0800 [facility] Ondansetron HCl (Zofran Inj) 4 mg IVP Q4 PRN PRN Reason: Nausea/Vomiting Last Admin: 02/13/18 10:08 Dose: 4 mg - Labs Labs: 02/14/18 07:20 02/14/18 07:20 - Constitutional Appears: Well, No Acute Distress - Head Exam Head Exam: ATRAUMATIC, NORMOCEPHALIC - ENT Exam ENT Exam: Mucous Membranes Moist - Respiratory Exam Respiratory Exam: NORMAL BREATHING PATTERN - Cardiovascular Exam Cardiovascular Exam: Bradycardia - GI/Abdominal Exam GI & Abdominal Exam: Soft. absent: Distended, Guarding, Tenderness, Rebound - Neurological Exam Neurological Exam: Alert, Awake, Oriented x3 - Skin Skin Exam: Dry, Warm Assessment and Plan - Assessment and Plan (Free Text) Assessment: 47F with abdominal pain, resolved Plan: - advance to heart healthy diet - no further surgical intervention - pt cleared for DC from surgical standpoint - d/w Dr. Farhana Saldana, PGY-3 <Nura Delcid - Last Filed: 02/15/18 15:25> Objective - Vital Signs/Intake and Output Vital Signs (last 24 hours): Temp Pulse Resp BP Pulse Ox 98.5 F 45 L 18 172/85 H 99 02/15/18 06:00 02/15/18 14:00 02/15/18 06:00 02/15/18 14:00 02/15/18 06:00 Intake and Output: 02/15/18 02/15/18 06:59 18:59 Intake Total 660 Balance 660 - Medications Medications: Current Medications Acetaminophen (Tylenol 325mg Tab) 650 mg PO Q4 PRN PRN Reason: Pain, Mild (1-3) Last Admin: 02/15/18 04:20 Dose: 650 mg Clonazepam (Klonopin) 0.5 mg PO BID PRN; Protocol PRN Reason: opitate withdrawl symptoms Last Admin: 02/15/18 15:03 Dose: 0.5 mg Hydralazine HCl (Apresoline) 10 mg IVP Q6 PRN PRN Reason: Systolic blood pressure >180 Hydrochlorothiazide (Hydrodiuril) 25 mg PO DAILY [facility] Last Admin: 02/15/18 10:31 Dose: 25 mg Ketorolac Tromethamine (Toradol) 15 mg IVP Q6 PRN PRN Reason: Pain, moderate (4-7) Last Admin: 02/14/18 06:10 Dose: 15 mg Lisinopril (Zestril) 10 mg PO DAILY [facility] Last Admin: 02/15/18 10:31 Dose: 10 mg Multivitamins/Minerals (Therapeutic-M Tab) 1 tab PO 0800 [facility] Ondansetron HCl (Zofran Inj) 4 mg IVP Q4 PRN PRN Reason: Nausea/Vomiting Last Admin: 02/14/18 09:02 Dose: 4 mg Pantoprazole Sodium (Protonix Ec Tab) 20 mg PO 0600 [facility] - Labs Labs: 02/14/18 07:20 02/14/18 07:20 Attending/Attestation - Attestation I have fully participated in the care of the patient.: Yes I have reviewed all pertinent clinical information, including history, physical exam and plan: Yes Notes (Text): Pt is improving clinically Tolerating diet and No c/o abdominal pain No General surgical intervention required at present Plan d.w pt by primary team in detail
--- NOTE | 2018-02-14 14:43 | CP.PCM.DIS ---
<Belén Sim L - Last Filed: 02/14/18 15:11> Provider - Provider Date of Admission: 02/13/18 05:02 Attending physician: Darshan Raymundo MD Time Spent in preparation of Discharge (in minutes): 45 Diagnosis - Discharge Diagnosis (2) Abdominal pain Status: Resolved Priority: Medium (3) Acute drug withdrawal syndrome Status: Resolved Priority: Medium (4) Abnormal finding on CT scan Status: Chronic Priority: Medium (5) Uterine fibroid Status: Chronic Priority: Medium (6) Adrenal nodule Status: Chronic Priority: Medium (7) History of hypertension Status: Chronic Priority: Medium Hospital Course - Lab Results Lab Results: Most Recent Lab Values WBC 9.8 10^3/ul (4.5-11.0) D 02/14/18 07:20 RBC 4.18 10^6/uL (3.5-6.1) 02/14/18 07:20 Hgb 11.6 g/dL (12.0-16.0) L 02/14/18 07:20 Hct 35.9 % (36.0-48.0) L 02/14/18 07:20 MCV 85.9 fl (80.0-105.0) 02/14/18 07:20 MCH 27.8 pg (25.0-35.0) 02/14/18 07:20 MCHC 32.3 g/dl (31.0-37.0) 02/14/18 07:20 RDW 14.7 % (11.5-14.5) H 02/14/18 07:20 Plt Count 325 10^3/uL (120.0-450.0) 02/14/18 07:20 MPV 9.0 fl (7.0-11.0) 02/14/18 07:20 Gran % 71.2 % (50.0-68.0) H 02/14/18 07:20 Lymph % (Auto) 23.1 % (22.0-35.0) 02/14/18 07:20 [place] % (Auto) 5.2 % (1.0-6.0) 02/14/18 07:20 Eos % (Auto) 0.3 % (1.5-5.0) L 02/14/18 07:20 Baso % (Auto) 0.2 % (0.0-3.0) 02/14/18 07:20 Gran # 6.96 (1.4-6.5) H 02/14/18 07:20 Lymph # (Auto) 2.3 (1.2-3.4) 02/14/18 07:20 [place] # (Auto) 0.5 (0.1-0.6) 02/14/18 07:20 Eos # (Auto) 0.0 (0.0-0.7) 02/14/18 07:20 Baso # (Auto) 0.02 K/mm3 (0.0-2.0) 02/14/18 07:20 Sodium 139 mmol/L (132-148) 02/14/18 07:20 Potassium 3.6 mmol/L (3.6-5.0) 02/14/18 07:20 Chloride 104 mmol/L (98-107) 02/14/18 07:20 Carbon Dioxide 24 mmol/L (21-33) 02/14/18 07:20 Anion Gap 15 (10-20) 02/14/18 07:20 BUN 15 mg/dL (7-21) 02/14/18 07:20 Creatinine 0.8 mg/dl (0.7-1.2) 02/14/18 07:20 Est GFR ( Amer) > 60 02/14/18 07:20 Est GFR (Non-Af Amer) > 60 02/14/18 07:20 Random Glucose 105 mg/dL (70-110) 02/14/18 07:20 Calcium 9.4 mg/dL (8.4-10.5) 02/14/18 07:20 Total Bilirubin 0.5 mg/dL (0.2-1.3) 02/14/18 07:20 AST 18 U/L (14-36) 02/14/18 07:20 ALT 18 U/L (7-56) 02/14/18 07:20 Alkaline Phosphatase 118 U/L (38-126) 02/14/18 07:20 Total Protein 7.4 g/dL (5.8-8.3) 02/14/18 07:20 Albumin 4.0 g/dL (3.0-4.8) 02/14/18 07:20 Globulin 3.3 gm/dL 02/14/18 07:20 Albumin/Globulin Ratio 1.2 (1.1-1.8) 02/14/18 07:20 Lipase 19 U/L (23-300) L 02/12/18 22:53 Urine Color Yellow (YELLOW) 02/12/18 23:30 Urine Appearance Sl cloudy (CLEAR) 02/12/18 23:30 Urine pH 6.0 (4.7-8.0) 02/12/18 23:30 Ur Specific [place] >= 1.030 (1.005-1.035) 02/12/18 23:30 Urine Protein 100 mg/dL (<30 mg/dL) H 02/12/18 23:30 Urine Glucose (UA) Negative mg/dL (NEGATIVE) 02/12/18 23:30 Urine Ketones 40 mg/dL (NEGATIVE) H 02/12/18 23:30 Urine Blood Moderate (NEGATIVE) H 02/12/18 23:30 Urine Nitrate Negative (NEGATIVE) 02/12/18 23:30 Urine Bilirubin Moderate (NEGATIVE) H 02/12/18 23:30 Urine Urobilinogen 0.2 E.U./dL (<1 E.U./dL) 02/12/18 23:30 Ur Leukocyte Esterase Small Cindi/uL (NEGATIVE) H 02/12/18 23:30 Urine RBC 2 - 5 /hpf (0-2) 02/12/18 23:30 Urine WBC 5 - 10 /hpf (0-6) 02/12/18 23:30 Ur Epithelial Cells 4 - 5 /hpf (0-5) 02/12/18 23:30 Urine Bacteria Small (NEG) 02/12/18 23:30 Urine Other Trichomonas 02/12/18 23:30 - Hospital Course Hospital Course: Patient is a 47 year female with a past medical history hypertension, uterine fibroids, heroin abuse who was admitted for evaluation and treatment of abdominal pain. With the use of physical examinations, lab work, and imaging the patient was diagnosed with and treated for abdominal pain secondary to opiate withdrawl, along with the patients chronic medical conditions. During their hospital stay the patient was seen by general surgery (Dr. Martines) for a distended appendix on CT scans whose recommendations were both appreciated and utilized in the care for this patient. It was determined that no acute surgical intervention was warranted at that time. During their hospital stay the patient underwent a CT abdomen/pelvis and MRI abdomen/pelvis which were reviewed, appreciated, and utilized in the management of the patients clinical course. CT abdomen/pelvis showed there is a 2.2 x 1.7 cm isodense left adrenal nodule, a few masses are identified within the uterine wall, suggestive of fibroids, midly distended appendix with gas measuring 7-8 mm, a few small hypodense left renal cysts, a tiny noncalcified gallstone or polyp within the gallbladder, nonspecific wall thickening of the bladder contiguous with the tail of the pancreas and isodense to the spleen. MRI of abdomen/pelvis with IV contast showed no acute findings, accessory splenic tissue, and simple renal cysts. Patient was treated with antihypertensive medications, analgesic, amongst other empiric/therapeutic medications. At this time the patient is medically stable for discharge under police custody. Patient understands and appreciates discharge plan. Patient instructed to follow up with physican within 3-5 days from discharge from hospital. Furthermore, the patient is instructed to take medications as prescribed and to return to emergency room for evaluation of intractable headache, fever, chills, dizziness, chest pain, shortness of breath , abdominal pain, nausea, vomiting, diarrhea, constipation, and urinary symptoms. This is a brief summary of the patients hospital course. Please see patient chart for full details. Discharge Exam - Additional Findings Additional findings: - Constitutional Appears: Well, No Acute Distress - Head Exam Head Exam: NORMAL INSPECTION - Eye Exam Eye Exam: Normal appearance - ENT Exam ENT Exam: Mucous Membranes Moist - Respiratory Exam Respiratory Exam: NORMAL BREATHING PATTERN - Cardiovascular Exam Cardiovascular Exam: REGULAR RHYTHM, +s1, +s2 - GI/Abdominal Exam GI & Abdominal Exam: Soft, Normal Bowel Sounds. absent: Distended - Extremities Exam Extremities Exam: Normal Inspection. absent: Calf Tenderness - Neurological Exam Neurological Exam: Alert, Awake - Psychiatric Exam Psychiatric exam: Normal Affect, Normal Mood. absent: Flat Affect Discharge Plan - Discharge Medications Prescriptions: cloNIDine [Catapres] 0.2 mg PO BID 7 Days tab hydroCHLOROthiazide [Hydrodiuril] 25 mg PO DAILY 7 Days tab - Follow Up Plan Condition: STABLE Disposition: RELEASED IN POLICE CUSTODY Additional Instructions: Patient Instructions: 1.Take medications as prescribed. 2. Please follow up with primary care doctor within 3 days. You will need your blood pressure rechecked within 3 days. Please get any refills needed with your primary care doctor. You will need a repeat MRI of your abdomen and pelvis in 12 months for an incidental finding of adrenal adenoma, please follow up with your primary care doctor for this. 3. Return to the emergency room for evaluation of intractable headache, fever, chills, dizziness, chest pain, shortness of breath, abdominal pain, nausea, vomiting, diarrhea, constipation, and urinary symptoms. <Rachel Hargrove R - Last Filed: 02/14/18 18:59> Provider - Provider Date of Admission: 02/13/18 05:02 Attending physician: Darshan Raymundo MD Hospital Course - Lab Results Lab Results: Most Recent Lab Values WBC 9.8 10^3/ul (4.5-11.0) D 02/14/18 07:20 RBC 4.18 10^6/uL (3.5-6.1) 02/14/18 07:20 Hgb 11.6 g/dL (12.0-16.0) L 02/14/18 07:20 Hct 35.9 % (36.0-48.0) L 02/14/18 07:20 MCV 85.9 fl (80.0-105.0) 02/14/18 07:20 MCH 27.8 pg (25.0-35.0) 02/14/18 07:20 MCHC 32.3 g/dl (31.0-37.0) 02/14/18 07:20 RDW 14.7 % (11.5-14.5) H 02/14/18 07:20 Plt Count 325 10^3/uL (120.0-450.0) 02/14/18 07:20 MPV 9.0 fl (7.0-11.0) 02/14/18 07:20 Gran % 71.2 % (50.0-68.0) H 02/14/18 07:20 Lymph % (Auto) 23.1 % (22.0-35.0) 02/14/18 07:20 [place] % (Auto) 5.2 % (1.0-6.0) 02/14/18 07:20 Eos % (Auto) 0.3 % (1.5-5.0) L 02/14/18 07:20 Baso % (Auto) 0.2 % (0.0-3.0) 02/14/18 07:20 Gran # 6.96 (1.4-6.5) H 02/14/18 07:20 Lymph # (Auto) 2.3 (1.2-3.4) 02/14/18 07:20 [place] # (Auto) 0.5 (0.1-0.6) 02/14/18 07:20 Eos # (Auto) 0.0 (0.0-0.7) 02/14/18 07:20 Baso # (Auto) 0.02 K/mm3 (0.0-2.0) 02/14/18 07:20 Sodium 139 mmol/L (132-148) 02/14/18 07:20 Potassium 3.6 mmol/L (3.6-5.0) 02/14/18 07:20 Chloride 104 mmol/L (98-107) 02/14/18 07:20 Carbon Dioxide 24 mmol/L (21-33) 02/14/18 07:20 Anion Gap 15 (10-20) 02/14/18 07:20 BUN 15 mg/dL (7-21) 02/14/18 07:20 Creatinine 0.8 mg/dl (0.7-1.2) 02/14/18 07:20 Est GFR ( Amer) > 60 02/14/18 07:20 Est GFR (Non-Af Amer) > 60 02/14/18 07:20 Random Glucose 105 mg/dL (70-110) 02/14/18 07:20 Calcium 9.4 mg/dL (8.4-10.5) 02/14/18 07:20 Total Bilirubin 0.5 mg/dL (0.2-1.3) 02/14/18 07:20 AST 18 U/L (14-36) 02/14/18 07:20 ALT 18 U/L (7-56) 02/14/18 07:20 Alkaline Phosphatase 118 U/L (38-126) 02/14/18 07:20 Total Protein 7.4 g/dL (5.8-8.3) 02/14/18 07:20 Albumin 4.0 g/dL (3.0-4.8) 02/14/18 07:20 Globulin 3.3 gm/dL 02/14/18 07:20 Albumin/Globulin Ratio 1.2 (1.1-1.8) 02/14/18 07:20 Lipase 19 U/L (23-300) L 02/12/18 22:53 Urine Color Yellow (YELLOW) 02/12/18 23:30 Urine Appearance Sl cloudy (CLEAR) 02/12/18 23:30 Urine pH 6.0 (4.7-8.0) 02/12/18 23:30 Ur Specific [place] >= 1.030 (1.005-1.035) 02/12/18 23:30 Urine Protein 100 mg/dL (<30 mg/dL) H 02/12/18 23:30 Urine Glucose (UA) Negative mg/dL (NEGATIVE) 02/12/18 23:30 Urine Ketones 40 mg/dL (NEGATIVE) H 02/12/18 23:30 Urine Blood Moderate (NEGATIVE) H 02/12/18 23:30 Urine Nitrate Negative (NEGATIVE) 02/12/18 23:30 Urine Bilirubin Moderate (NEGATIVE) H 02/12/18 23:30 Urine Urobilinogen 0.2 E.U./dL (<1 E.U./dL) 02/12/18 23:30 Ur Leukocyte Esterase Small Cindi/uL (NEGATIVE) H 02/12/18 23:30 Urine RBC 2 - 5 /hpf (0-2) 02/12/18 23:30 Urine WBC 5 - 10 /hpf (0-6) 02/12/18 23:30 Ur Epithelial Cells 4 - 5 /hpf (0-5) 02/12/18 23:30 Urine Bacteria Small (NEG) 02/12/18 23:30 Urine Other Trichomonas 02/12/18 23:30 Attending/Attestation - Attestation I have personally seen and examined this patient.: Yes I have fully participated in the care of the patient.: Yes I have reviewed all pertinent clinical information, including history, physical exam and plan: Yes Notes (Text): Discharge held secondary to uncontrolled hypertension. Please see progress note from today.
--- NOTE | 2018-02-14 16:15 | CP.PCM.PN ---
<Belén Sim L - Last Filed: 02/14/18 16:12> Subjective - Date & Time of Evaluation Date of Evaluation: 02/14/18 Time of Evaluation: 08:00 - Subjective Subjective: Progress note for hospitalist service. Overnight, pt had uncontrolled hypertension. Was given clonidine 0.3 mg with no significant improvement. This morning BP continued to be elevated. Pt received stat dose of hydralazine with improvement. Pt was going to be discharged however blood pressure was again elevated. SBP was 190s. Otherwise no chest pain , shortness of breath, headache, or dizziness. No nausea, vomiting, diarrhea. Patient is tolerating NPO. Objective - Vital Signs/Intake and Output Vital Signs (last 24 hours): Temp Pulse Resp BP Pulse Ox 98.5 F 46 L 18 190/101 H 100 02/14/18 06:00 02/14/18 14:00 02/14/18 06:00 02/14/18 14:00 02/14/18 06:00 Intake and Output: 02/14/18 02/14/18 06:59 18:59 Intake Total 1200 720 Balance 1200 720 - Medications Medications: Current Medications Acetaminophen (Tylenol 325mg Tab) 650 mg PO Q4 PRN PRN Reason: Pain, Mild (1-3) Amlodipine Besylate (Norvasc) 5 mg PO BID [facility] Clonazepam (Klonopin) 0.5 mg PO BID PRN; Protocol PRN Reason: opitate withdrawl symptoms Last Admin: 02/14/18 09:15 Dose: 0.5 mg Clonidine HCl (Catapres) 0.3 mg PO BID [facility] Hydrochlorothiazide (Hydrodiuril) 25 mg PO DAILY [facility] Last Admin: 02/14/18 15:28 Dose: 25 mg Ketorolac Tromethamine (Toradol) 15 mg IVP Q6 PRN PRN Reason: Pain, moderate (4-7) Last Admin: 02/14/18 06:10 Dose: 15 mg Multivitamins/Minerals (Therapeutic-M Tab) 1 tab PO 0800 [facility] Ondansetron HCl (Zofran Inj) 4 mg IVP Q4 PRN PRN Reason: Nausea/Vomiting Last Admin: 02/14/18 09:02 Dose: 4 mg - Labs Labs: 02/14/18 07:20 02/14/18 07:20 - Additional Findings Additional findings: - Constitutional Appears: Well, No Acute Distress - Head Exam Head Exam: NORMAL INSPECTION - Eye Exam Eye Exam: Normal appearance - ENT Exam ENT Exam: Mucous Membranes Moist - Respiratory Exam Respiratory Exam: NORMAL BREATHING PATTERN - Cardiovascular Exam Cardiovascular Exam: REGULAR RHYTHM, +s1, +s2 - GI/Abdominal Exam GI & Abdominal Exam: Soft, Normal Bowel Sounds. absent: Distended - Extremities Exam Extremities Exam: Normal Inspection. absent: Calf Tenderness - Neurological Exam Neurological Exam: Alert, Awake - Psychiatric Exam Psychiatric exam: Normal Affect, Normal Mood. absent: Flat Affect Assessment and Plan (1) Uncontrolled hypertension Assessment & Plan: Called patient's pharmacy to confirm. Patient was prescribed clonidine 0.3 mg BID and HCTZ 25 mg QD. Last time patient filled script was in 2016. Pt's blood pressures still not controlled despite HCTZ and dose of clonidine. Will hold off discharge ssecondary to uncontrolled hypertension and continue HCTZ 25 mg, clonidine 0.3 mg BID, and norvasc 5 mg BID. Will reevaluate and adjust medications PRN. Status: Acute (2) Abdominal pain Assessment & Plan: Resolved. Pt had CT scan with no specific findings. Initially, surgery was consulted.Appendicitis ruled out. Status: Resolved (3) Acute drug withdrawal syndrome Assessment & Plan: Resolved. Status: Resolved (4) Abnormal finding on CT scan Status: Chronic (5) Uterine fibroid Assessment & Plan: Pt to follow up with outpatient OB-[employer] T[employer]ER. Status: Chronic (6) Adrenal nodule Assessment & Plan: Recommending pt get repeat CT or MRI in 12 months. Status: Chronic <Rachel Hargrove R - Last Filed: 02/14/18 16:55> Objective - Vital Signs/Intake and Output Vital Signs (last 24 hours): Temp Pulse Resp BP Pulse Ox 98.5 F 46 L 18 190/101 H 100 02/14/18 06:00 02/14/18 14:00 02/14/18 06:00 02/14/18 14:00 02/14/18 06:00 Intake and Output: 02/14/18 02/14/18 06:59 18:59 Intake Total 1200 720 Balance 1200 720 - Medications Medications: Current Medications Acetaminophen (Tylenol 325mg Tab) 650 mg PO Q4 PRN PRN Reason: Pain, Mild (1-3) Amlodipine Besylate (Norvasc) 5 mg PO BID [facility] Clonazepam (Klonopin) 0.5 mg PO BID PRN; Protocol PRN Reason: opitate withdrawl symptoms Last Admin: 02/14/18 09:15 Dose: 0.5 mg Clonidine HCl (Catapres) 0.1 mg PO TID [facility] Hydralazine HCl (Apresoline) 10 mg IVP Q6 PRN PRN Reason: Systolic blood pressure >180 Hydrochlorothiazide (Hydrodiuril) 25 mg PO DAILY [facility] Last Admin: 02/14/18 15:28 Dose: 25 mg Ketorolac Tromethamine (Toradol) 15 mg IVP Q6 PRN PRN Reason: Pain, moderate (4-7) Last Admin: 02/14/18 06:10 Dose: 15 mg Multivitamins/Minerals (Therapeutic-M Tab) 1 tab PO 0800 [facility] Ondansetron HCl (Zofran Inj) 4 mg IVP Q4 PRN PRN Reason: Nausea/Vomiting Last Admin: 02/14/18 09:02 Dose: 4 mg - Labs Labs: 02/14/18 07:20 02/14/18 07:20 Attending/Attestation - Attestation I have personally seen and examined this patient.: Yes I have fully participated in the care of the patient.: Yes I have reviewed all pertinent clinical information, including history, physical exam and plan: Yes Notes (Text): Patient seen and examined by me at 11:35 AM with resident. Case including physical assessment and plan discussed with resident. Agree with above with following additions and changes. Patient states she is feeling much better today. Abdominal pain is improved. No burning or pain with urination. Patient states that her bleeding from menstruation has improved. Patient is asking for clonidine. States she was taking it for withdrawal from roxycodone. She denies any chest pain or shortness of breath. No nausea or vomiting. No headaches or dizziness. No chills. Physical exam: Gen: Patient is awake and alert sitting up in bed in no acute distress HEENT: Normocephalic atraumatic, extraocular muscles intact, pupils equal reactive, oropharynx is pink and moist, no pharyngeal erythema or exudate appreciated, neck is supple. Cardiovascular: Normal rhythm, normal S1-S2, no murmurs rubs or gallops appreciated Pulmonary: Normal respiratory effort. No rhonchi, rales, or wheezing appreciated Gastrointestinal: Soft, nontender, nondistended, positive bowel sounds all 4 quadrants, no guarding Musculoskeletal: Moves all extremities, no calf tenderness. Central nervous system: AAO 3 Dermatologic: Skin warm and dry Assessment and plan: She presented with abdominal pain. Patient found to have uterine fibroids. Patient advised for outpatient follow-up with her shoe dresser for this. Her pain likely secondary to menstruation. Pain has improved. Patient wants to go home. Patient states that she takes lisinopril and clonidine at home. Patient's pharmacy called. Patient has not taken medications since 2016. Unsure how patient is taking lisinopril and clonidine. Patient was initially discharged. Discharge held secondary to uncontrolled hypertension. Patient has been bradycardic on clonidine. Clonidine dose adjusted and hold parameters placed. Norvasc added. Patient was taking clonidine and hydrochlorothiazide in 2016. Hydrochlorothiazide continued. Patient also placed on hydralazine when necessary. Monitor blood pressure and adjust medications as needed. Patient also had an incidental finding of adrenal adenoma on MRI. Patient advised that have repeat scan done in [address] abdomen and pelvis showed possible pancreatic lesion. MRI was done which did not show any pancreatic lesion or mass. Disposition: DC planning for tomorrow if blood pressure is better controlled Case was discussed in detail with the patient regarding her diagnosis and treatment plan
[2018-02-14] MEDS ORDERED: Pantoprazole 20 mg EC Tab PO STA (21:45)
[2018-02-15] MEDS: Multivitamin With Minerals Tab PO SCH (08:25)
[2018-02-15] MEDS: Pantoprazole 20 mg EC Tab PO SCH (22:09)
--- NOTE | 2018-02-15 22:26 | CP.PCM.PN ---
<ChiquisBelné L - Last Filed: 02/15/18 22:19> Subjective - Date & Time of Evaluation Date of Evaluation: 02/15/18 Time of Evaluation: 09:00 - Subjective Subjective: Belén Sim PGY 1 Progress Note Overnight patient had elevated blood pressures and was administered dose of clonidine. This morning, patient was resting comfortably in bed and reported no symptoms. Denied chest pain, shortness of breath, abd pain, N/V. Due to persistent elevated blood pressure, patient was given hctz, lisinopril. Blood pressure remained elevated, was given dose of hydralazine. After administration of medication, blood pressure was within normal limits. However, due to persistent bradycardia, patient was moved to telemetry floor. Objective - Vital Signs/Intake and Output Vital Signs (last 24 hours): Temp Pulse Resp BP Pulse Ox 98.2 F 52 L 19 125/61 98 02/15/18 18:00 02/15/18 18:00 02/15/18 18:00 02/15/18 18:00 02/15/18 18:00 - Medications Medications: Current Medications Acetaminophen (Tylenol 325mg Tab) 650 mg PO Q4 PRN PRN Reason: Pain, Mild (1-3) Last Admin: 02/15/18 22:04 Dose: 650 mg Clonazepam (Klonopin) 0.5 mg PO BID PRN; Protocol PRN Reason: opitate withdrawl symptoms Last Admin: 02/15/18 15:03 Dose: 0.5 mg Hydralazine HCl (Apresoline) 25 mg PO Q8H [facility] Last Admin: 02/15/18 16:39 Dose: 25 mg Hydrochlorothiazide (Hydrodiuril) 25 mg PO DAILY [facility] Last Admin: 02/15/18 10:31 Dose: 25 mg Ketorolac Tromethamine (Toradol) 15 mg IVP Q6 PRN PRN Reason: Pain, moderate (4-7) Last Admin: 02/14/18 06:10 Dose: 15 mg Lisinopril (Zestril) 10 mg PO DAILY [facility] Last Admin: 02/15/18 10:31 Dose: 10 mg Multivitamins/Minerals (Therapeutic-M Tab) 1 tab PO 0800 [facility] Last Admin: 02/15/18 08:25 Dose: 1 tab Ondansetron HCl (Zofran Inj) 4 mg IVP Q4 PRN PRN Reason: Nausea/Vomiting Last Admin: 02/14/18 09:02 Dose: 4 mg Pantoprazole Sodium (Protonix Ec Tab) 20 mg PO 0600 [facility] Last Admin: 02/15/18 22:09 Dose: 20 mg - Labs Labs: 02/14/18 07:20 02/14/18 07:20 - Additional Findings Additional findings: - Constitutional Appears: Well, No Acute Distress - Head Exam Head Exam: NORMAL INSPECTION - Eye Exam Eye Exam: Normal appearance - ENT Exam ENT Exam: Mucous Membranes Moist - Respiratory Exam Respiratory Exam: NORMAL BREATHING PATTERN - Cardiovascular Exam Cardiovascular Exam: REGULAR RHYTHM, +s1, +s2 - GI/Abdominal Exam GI & Abdominal Exam: Soft, Normal Bowel Sounds. absent: Distended - Extremities Exam Extremities Exam: Normal Inspection. absent: Calf Tenderness - Neurological Exam Neurological Exam: Alert, Awake - Psychiatric Exam Psychiatric exam: Normal Affect, Normal Mood. absent: Flat Affect Assessment and Plan (1) Uncontrolled hypertension Status: Acute (2) Abdominal pain Status: Resolved (3) Acute drug withdrawal syndrome Status: Resolved (4) Abnormal finding on CT scan Status: Chronic (5) Uterine fibroid Status: Chronic (6) Adrenal nodule Status: Chronic <Hargrove,Rachel R - Last Filed: 02/16/18 09:08> Objective - Vital Signs/Intake and Output Vital Signs (last 24 hours): Temp Pulse Resp BP Pulse Ox 98.3 F 60 20 163/80 H 100 02/16/18 08:39 02/16/18 08:39 02/16/18 08:39 02/16/18 08:39 02/16/18 08:39 Intake and Output: 02/16/18 02/16/18 06:59 18:59 Intake Total 0 Balance 0 - Medications Medications: Current Medications Acetaminophen (Tylenol 325mg Tab) 650 mg PO Q4 PRN PRN Reason: Pain, Mild (1-3) Last Admin: 02/15/18 22:04 Dose: 650 mg Clonazepam (Klonopin) 0.5 mg PO BID PRN; Protocol PRN Reason: opitate withdrawl symptoms Last Admin: 02/15/18 15:03 Dose: 0.5 mg Hydralazine HCl (Apresoline) 25 mg PO Q8H [facility] Last Admin: 02/16/18 01:00 Dose: Not Given Hydrochlorothiazide (Hydrodiuril) 25 mg PO DAILY [facility] Last Admin: 02/15/18 10:31 Dose: 25 mg Ketorolac Tromethamine (Toradol) 15 mg IVP Q6 PRN PRN Reason: Pain, moderate (4-7) Last Admin: 02/14/18 06:10 Dose: 15 mg Lisinopril (Zestril) 10 mg PO DAILY [facility] Last Admin: 02/15/18 10:31 Dose: 10 mg Multivitamins/Minerals (Therapeutic-M Tab) 1 tab PO 0800 [facility] Last Admin: 02/15/18 08:25 Dose: 1 tab Ondansetron HCl (Zofran Inj) 4 mg IVP Q4 PRN PRN Reason: Nausea/Vomiting Last Admin: 02/14/18 09:02 Dose: 4 mg Pantoprazole Sodium (Protonix Ec Tab) 20 mg PO 0600 [facility] Last Admin: 02/16/18 06:52 Dose: 20 mg - Labs Labs: 02/16/18 08:10 02/14/18 07:20 Attending/Attestation - Attestation I have personally seen and examined this patient.: Yes I have fully participated in the care of the patient.: Yes I have reviewed all pertinent clinical information, including history, physical exam and plan: Yes Notes (Text): Patient seen and examined by me at 10:05 02/15/18 AM with resident. Case including physical assessment and plan discussed with resident. Agree with above with following additions and changes. Patient states she wants to leave because she is not receiving clonidine. Patient states that she was buying clonidine from other people her to going to nursing home. Explained to patient in detail to patient that patient's heart rate is slow and clonidine cannot be given. She denies any chest pain or shortness of breath. No fevers or chills. No nausea, vomiting, or abdominal pain. Her menstruation has stopped. No dysuria or burning with urination. No diarrhea or constipation. Physical exam: Gen: Patient is awake and alert sitting up in bed in no acute distress HEENT: Normocephalic atraumatic, extraocular muscles intact, pupils equal reactive, oropharynx is pink and moist, no pharyngeal erythema or exudate appreciated, neck is supple. Cardiovascular: Normal rhythm, normal S1-S2, no murmurs rubs or gallops appreciated Pulmonary: Normal respiratory effort. No rhonchi, rales, or wheezing appreciated Gastrointestinal: Soft, nontender, nondistended, positive bowel sounds all 4 quadrants, no guarding Musculoskeletal: Moves all extremities, no calf tenderness. Central nervous system: AAO 3 Dermatologic: Skin warm and dry Assessment and plan: Patient is a 47-year-old female who presented with abdominal pain. Patient found to have uterine fibroids. 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 Abdominal pain resolved and likely secondary to menstruation. Appendicitis ruled out. Patient wants clonidine. Patient has not taken medications since 2016 per patient's pharmacy. Blood pressure uncontrolled. Clonidine stopped secondary to bradycardia. Patient is refusing Norvasc. Patient placed on lisinopril and hydralazine. Monitor blood pressure and adjust medications as needed. Monitor on telemetry. Patient also had an incidental finding of adrenal adenoma on MRI. Patient advised that have repeat scan done in [address] abdomen and pelvis showed possible pancreatic lesion. MRI was done which did not show any pancreatic lesion or mass. Urine culture positive for gram-positive cocci. However patient is asymptomatic and colony count is less than 10,000. There is no indication for antibiotic treatment right now. Disposition: [place] planning for tomorrow if blood pressure is better controlled Case was discussed in detail with the patient regarding her diagnosis and treatment plan
[2018-02-16] MEDS: Pantoprazole 20 mg EC Tab PO SCH (06:52)
[2018-02-16 08:36] LABS: BASO # 0.03 K/mm3 (0.0-2.0); BASO % 0.3 % (0.0-3.0); EOS % 0.3 % (1.5-5.0); GRAN # 7.12 (1.4-6.5); GRAN % 74.4 % (50.0-68.0); HEMOGLOBIN 13.2 g/dL (12.0-16.0); LYMPH # 1.8 (1.2-3.4); MEAN CELL VOLUME 86.9 fl (80.0-105.0); MEAN CORPUSCULAR HEMOGLOBIN 28.3 pg (25.0-35.0); MEAN CORPUSCULAR HGB CONC 32.6 g/dl (31.0-37.0); MEAN PLATELET VOLUME 9.7 fl (7.0-11.0); MONO # 0.6 (0.1-0.6); RBC 4.66 10^6/uL (3.5-6.1); WHITE BLOOD COUNT 9.6 10^3/ul (4.5-11.0)
[2018-02-16 08:41] VITALS: BP 163/80; PULSE 60; RESP 20; TEMP 98.3; O2SAT 100
--- NOTE | 2018-02-16 08:47 | CARD ---
APPROVED REPORT EKG Measurement Heart [id number] <Conclusion> Sinus bradycardia Minimal voltage criteria for LVH, may be normal variant
[2018-02-16] MEDS: Multivitamin With Minerals Tab PO SCH (09:29)
--- NOTE | 2018-02-16 09:32 | MRI ---
PROCEDURE: MRI Abdomen without contrast HISTORY: COMPARISON: None available. TECHNIQUE: Multisequence, multiplanar MR images of the abdomen without gadolinium contrast enhancement. FINDINGS: LIVER: Unremarkable. GALLBLADDER: Unremarkable. SPLEEN: Unremarkable. ADRENALS: Unremarkable. KIDNEYS: 13 millimeter left renal cyst. . PANCREAS: Unremarkable. AORTA: No aneurysm. ASCITES: None. PERITONEUM: Unremarkable. LYMPH NODES: Unremarkable. OTHER FINDINGS: None. IMPRESSION: No pancreatic abnormality.
== END 2018-02-16 14:25 | DRG 744 ==
LOC: ED 21:44 → ERH 02-13 05:02 → 5RNO 02-13 06:59 → OBSVTOIN 02-15 17:11 → 3RSO 02-15 18:38
PROVIDERS: ADMIT Internal Medicine; ATTEND Internal Medicine
DX: F11.23 Opioid dependence with withdrawal (principal); N39.0 Urinary tract infection, site not specified; R10.9 Unspecified abdominal pain; I10 Essential (primary) hypertension; E27.8 Other specified disorders of adrenal gland; D25.9 Leiomyoma of uterus, unspecified; G40.909 Epilepsy, unspecified, not intractable, without status epilepticus; N28.1 Cyst of kidney, acquired; R00.1 Bradycardia, unspecified; T46.5X5A Adverse effect of other antihypertensive drugs, initial encounter; Z87.891 Personal history of nicotine dependence; Z91.14 Patient's other noncompliance with medication regimen

== ENCOUNTER 2018-02-20 11:53 | Emergency (ER) | payer MEDICAID, OTHER ==
[2018-02-20 12:01] VITALS: BMI 27.4
--- NOTE | 2018-02-20 12:35 | ED PDOC ---
Arrival/HPI - History of Present Illness Time/Duration: < week Symptom Course: Intermittent Activities at Onset: Light Context: Other (police custody) <Seth Pike - Last Filed: 02/20/18 15:51> <Ian Michael DO - Last Filed: 02/20/18 17:44> - General Chief Complaint: Abdominal Pain Time Seen by Provider: 02/20/18 12:08 - History of Present Illness Narrative History of Present Illness (Text): 02/20/18 12:30 This is a 47 year old female in police custody with PMH of uterine fibroids, HT , heroin abuse, and epilepsy presenting to the ED for abdominal pain. Pain is worse in the right lower quadrant and is associated with nausea and vomiting. Pain admitted to the hospital for 2 days last week for similar complaints. MRI was inconsequential except for uterine fibroids. Patient left AMA from [facility] for similar complaints 3 weeks ago. Patient states she is not complaint with her medications. Denies chest pain, SOB, headache, fevers, and chills. ( Seth Pike) Past Medical History - Provider Review Nursing Documentation Reviewed: Yes - Infectious Disease Hx of Infectious Diseases: None - Reproductive Menopause: No - Cardiac Hx Cardiac Disorders: Yes Hx Hypertension: Yes - Pulmonary Hx Asthma: Yes - Neurological Hx Seizures: Yes - Endocrine/Metabolic Other/Comment: "possibly borderline diabetes" - Musculoskeletal/Rheumatological Hx Arthritis: Yes Hx Back Pain: Yes Hx Falls: Yes Hx Fractures: Yes (Right Ankle) - Genitourinary/Gynecological Hx Urinary Tract Infection: Yes - Psychiatric Hx Anxiety: Yes Hx Depression: Yes Hx Substance Use: Yes <Seth Pike - Last Filed: 02/20/18 15:51> Family/Social History - Physician Review Nursing Documentation Reviewed: Yes Family/Social History: Unknown Family HX Smoking Status: Heavy Smoker > 10 Cigarettes Daily Hx Alcohol Use: No Hx Substance Use: Yes Substance used: Noemy <Seth Pike - Last Filed: 02/20/18 15:51> Allergies/Home Meds <Seth Pike - Last Filed: 02/20/18 15:51> <Ian Michael DO - Last Filed: 02/20/18 17:44> Allergies/Adverse Reactions: Allergies No Known Allergies Allergy (Verified 02/12/18 21:47) Review of Systems - Physician Review All systems were reviewed & negative as marked: Yes - Review of Systems Constitutional: Normal Eyes: Normal ENT: Normal Respiratory: Normal Cardiovascular: Normal Gastrointestinal: Abdominal Pain, Nausea, Vomiting. absent: Constipation, Diarrhea Genitourinary Female: Normal Musculoskeletal: Normal Skin: Normal Neurological: Normal Endocrine: Normal <ElisaJael lulisa - Last Filed: 02/20/18 15:51> Physical Exam Vital Signs Reviewed: Yes Temperature: Afebrile Blood Pressure: Hypertensive Pulse: Regular Respiratory Rate: Normal Appearance: Positive for: Well-Appearing, Non-Toxic, Comfortable Pain Distress: None Mental Status: Positive for: Alert and Oriented X 3 - Systems Exam Head: Present: Atraumatic, Normocephalic Pupils: Present: PERRL Extroacular Muscles: Present: EOMI Conjunctiva: Present: Normal Mouth: Present: Moist Mucous Membranes Neck: Present: Normal Range of Motion Respiratory/Chest: Present: Clear to Auscultation, Good Air Exchange. No: Respiratory Distress, Accessory Muscle Use Cardiovascular: Present: Regular Rate and Rhythm, Normal S1, S2. No: Murmurs Abdomen: Present: Tenderness, Normal Bowel Sounds. No: Distention, Peritoneal Signs, Rebound Back: Present: Normal Inspection Upper Extremity: Present: Normal Inspection. No: Cyanosis, Edema Lower Extremity: Present: Normal Inspection. No: Edema Neurological: Present: Speech Normal, Motor Func Grossly Intact, Normal Sensory Function Skin: Present: Warm, Dry, Normal Color. No: Rashes Psychiatric: Present: Alert, Normal Insight, Normal Concentration <ElisatabithaJaelminh - Last Filed: 02/20/18 15:51> Vital Signs Temp Pulse Resp BP Pulse Ox 02/20/18 15:53 98.1 F 70 18 99 02/20/18 15:33 98.0 F 66 18 108/84 100 02/20/18 13:51 70 180/111 H 02/20/18 11:57 98.8 F 57 L 16 181/111 H 97 Medical Decision Making <ElisatabithaSeth - Last Filed: 02/20/18 15:51> <Ian Michael DO - Last Filed: 02/20/18 17:44> ED Course and Treatment: 02/20/18 12:36 This is a 47 year old female with PMH of uterine fibroids, substance abuse, HT and epilepsy presenting to the ED for abdominal pain. Differential not limited to: Uterine fibroids vs electrolyte abnormality Plan -Blood work, lipase, test, urinalysis -CT scan Progress: 02/20/18 12:38 EKG: rate of 55, sinus bradycardia, AK of 126ms and QRS of 86ms. 02/20/18 15:51 Stable vitals, patient resting comfortably. (Seth Pike) A 47 year old female with abdominal pain. In agreement with resident note, which includes further HPI details. Patient was seen and evaluated with resident , came up with plan and treatment together. Attending followup: Patient feeling better. Labs and imaging reviewed. Patient to be discharged with Rx and followup instructions. (Ian Michael DO) - Lab Interpretations Lab Results: 02/20/18 12:50 02/20/18 12:50 Lab Results 02/20/18 13:26: Urine Color Yellow, Urine Appearance Turbid, Urine pH 6.0, Ur Specific [place] >= 1.030, Urine Protein 100 H, Urine Glucose (UA) Negative, Urine Ketones 40 H, Urine Blood Negative, Urine Nitrate Negative, Urine Bilirubin Small H, Urine Urobilinogen 0.2, Ur Leukocyte Esterase Negative, Urine RBC Negative, Urine WBC 1 - 3, Ur Epithelial Cells 6 - 8 02/20/18 12:50: Beta HCG, Quant < 2.39 02/20/18 12:50: Sodium 139, Potassium 3.9, Chloride 97 L, Carbon Dioxide 26, Anion Gap 20, BUN 22 H, Creatinine 0.8, Est GFR ( Amer) > 60, Est GFR ( Non-Af Amer) > 60, Random Glucose 109, Calcium 10.2, Magnesium 2.0, Total Bilirubin 0.8, AST 23, ALT 15, Alkaline Phosphatase 124, Total Protein 8.9 H, Albumin 4.9 H, Globulin 4.0, Albumin/Globulin Ratio 1.2, Lipase 63 02/20/18 12:50: WBC 15.7 H D, RBC 5.12, Hgb 14.8, Hct 44.6, MCV 87.1, MCH 28.9, MCHC 33.2, RDW 15.2 H, Plt Count 371, MPV 10.0, Gran % 78.3 H, Lymph % (Auto) 15.9 L, Hood % (Auto) 5.6, Eos % (Auto) 0.0 L, Baso % (Auto) 0.2, Gran # 12.29 H , Lymph # (Auto) 2.5, Hood # (Auto) 0.9 H, Eos # (Auto) 0.0, Baso # (Auto) 0.03 - RAD Interpretation Radiology Orders: 02/20/18 13:36 ABD & PELVIS IV CONTRAST ONLY [CT] Stat - Medication Orders Current Medication Orders: Discontinued Medications Clonidine HCl (Catapres) 0.2 mg PO STAT STA Stop: 02/20/18 13:39 Last Admin: 02/20/18 13:51 Dose: 0.2 mg MAR Pulse and Blood Pressure Document 02/20/18 13:51 [email or web address] (Rec: 02/20/18 13:52 [email or web address] [id number]) Pulse Pulse Rate (60-90) 70 Blood Pressure Blood Pressure (100/60-150/90) 180/111 Hydralazine HCl (Apresoline) 25 mg PO STAT STA Stop: 02/20/18 12:42 Last Admin: 02/20/18 13:37 Dose: Not Given Non-Admin Reason: Patient Refused Hydrochlorothiazide (Hydrodiuril) 25 mg PO STAT STA Stop: 02/20/18 12:42 Last Admin: 02/20/18 13:37 Dose: Not Given Non-Admin Reason: Patient Refused Sodium Chloride (Sodium Chloride 0.9%) 1,000 mls @ 100 mls/hr IV .Q10H HORACE Last Admin: 02/20/18 13:00 Dose: 100 mls/hr eMAR Start Stop Document 02/20/18 13:00 [email or web address] (Rec: 02/20/18 13:01 [email or web address] [id number]) Intravenous Solution Start Date 02/20/18 Start Time 13:00 End Date 02/20/18 - PA / [employer]ER / Resident Statement TAMIR has reviewed & agrees with the documentation as recorded. TAMIR has examined the patient and agrees with the treatment plan. <Seth Pike - Last Filed: 02/20/18 15:51> Disposition/Present on Arrival - Present on Arrival Any Indicators Present on Arrival: No History of DVT/PE: No History of Uncontrolled Diabetes: No Urinary Catheter: No History of Decub. Ulcer: No History Surgical Site Infection Following: None - Disposition Have Diagnosis and Disposition been Completed?: Yes Disposition Time: 16:00 <Seth Pike - Last Filed: 02/20/18 15:51> - Disposition Disposition Time: 15:00 <Ian Michael DO - Last Filed: 02/20/18 17:44> - Disposition Diagnosis: Hypertension, Abdominal pain Disposition: HOME/ ROUTINE Condition: IMPROVED Discharge Instructions (ExitCare): High Blood Pressure (DC) Additional Instructions: ANGELO MEI, thank you for letting us take care of you today. The emergency medical care you received today was directed at your acute symptoms. If you were prescribed any medication, please fill it and take as directed. It may take several days for your symptoms to resolve. Return to the Emergency Department if your symptoms worsen, do not improve, or if you have any other problems. Please contact your doctor or call one of the physicians/clinics you have been referred to that are listed on the Patient Visit Information form that is included in your discharge packet. Bring any paperwork you were given at discharge with you along with any medications you are taking to your follow up visit. Our treatment cannot replace ongoing medical care by a primary care provider outside of the emergency department. Thank you for allowing the [employer] team to be part of your care today. Take all your medication as prescribed. Follow up with your primary care doctor this week for re-evaluation and further management. PATIENT IS MEDICALLY CLEARED FOR INCARCERATION. Prescriptions: cloNIDine [Catapres] 0.2 mg PO DAILY #7 tab Referrals: [facility] Casi Huynh, [Non-Staff] - Follow up with primary Forms: [employer] (Cameroonian)
[2018-02-20] MEDS ORDERED: Sodium Chloride 0.9% 1,000 ML IV SCH (12:45)
[2018-02-20 13:00] LABS: BASO # 0.03 K/mm3 (0.0-2.0); BASO % 0.2 % (0.0-3.0); GRAN # 12.29 (1.4-6.5); GRAN % 78.3 % (50.0-68.0); HEMOGLOBIN 14.8 g/dL (12.0-16.0); LYMPH # 2.5 (1.2-3.4); LYMPH % 15.9 % (22.0-35.0); MEAN CELL VOLUME 87.1 fl (80.0-105.0); MEAN CORPUSCULAR HEMOGLOBIN 28.9 pg (25.0-35.0); MEAN CORPUSCULAR HGB CONC 33.2 g/dl (31.0-37.0); MONO # 0.9 (0.1-0.6); MONO % 5.6 % (1.0-6.0); RBC 5.12 10^6/uL (3.5-6.1); RED CELL DISTRIBUTION WIDTH 15.2 % (11.5-14.5); WHITE BLOOD COUNT 15.7 10^3/ul (4.5-11.0)
[2018-02-20 13:17] LABS: ALB/GLOB RATIO 1.2 (1.1-1.8); ALBUMIN 4.9 g/dL (3.0-4.8); ALT/SGPT 15 U/L (7-56); AST/SGOT 23 U/L (14-36); BLOOD UREA NITROGEN 22 mg/dL (7-21); CALCIUM 10.2 mg/dL (8.4-10.5); GFR AFRICAN-AMERICAN > 60; GFR NON-AFRICAN AMERICAN > 60; LIPASE 63 U/L (23-300)
[2018-02-20 13:46] LABS: URINE BILIRUBIN SMALL (NEGATIVE); URINE BLOOD NEGATIVE (NEGATIVE); URINE GLUCOSE (UA) NEGATIVE (NEGATIVE); URINE LEUKOCYTE ESTERASE NEGATIVE Leu/uL (NEGATIVE); URINE PROTEIN 100 mg/dL (<30 mg/dL); URINE UROBILINOGEN 0.2 E.U./dL (<1 E.U./dL)
[2018-02-20 13:47] LABS: URINE APPEARANCE TURBID (CLEAR); URINE COLOR YELLOW (YELLOW)
[2018-02-20 13:48] LABS: URINE RBC NEGATIVE /hpf (0-2)
[2018-02-20] MEDS ORDERED: Iohexol 350 MG/100 ML VIAL ONE (13:53)
--- NOTE | 2018-02-20 15:08 | CT ---
Date of service: 02/20/2018 PROCEDURE: CT Abdomen and Pelvis with contrast HISTORY: diffuse abd pain COMPARISON: CT 02/13/2018 TECHNIQUE: Contrast dose: 100 cc of Omni 350 Radiation dose: Total exam DLP = 525 mGy-cm. This CT exam was performed using one or more of the following dose reduction techniques: Automated exposure control, adjustment of the mA and/or kV according to patient size, and/or use of iterative reconstruction technique. FINDINGS: LOWER THORAX: Unremarkable. LIVER: Unremarkable. No gross lesion or ductal dilatation. GALLBLADDER AND BILE DUCTS: There is contraction of the gallbladder with some wall thickening. PANCREAS: Unremarkable. No gross lesion or ductal dilatation. SPLEEN: Unremarkable. ADRENALS: There is a 17 mm left adrenal mass. This is most likely an adenoma. KIDNEYS AND URETERS: Simple cyst in the left kidney VASCULATURE: Unremarkable. No aortic aneurysm. BOWEL: Unremarkable. No obstruction. No gross mural thickening. APPENDIX: Normal appendix. PERITONEUM: Unremarkable. No free fluid. No free air. LYMPH NODES: Unremarkable. No enlarged lymph nodes. BLADDER: Unremarkable. REPRODUCTIVE: Multiple fibroids BONES: No acute fracture. OTHER FINDINGS: None. IMPRESSION: No acute intra-abdominal findings
[2018-02-20 15:34] VITALS: BP 108/84; RESP 18
[2018-02-20 15:54] VITALS: PULSE 70; TEMP 98.1; O2SAT 99
--- NOTE | 2018-02-20 16:55 | CARD ---
APPROVED REPORT Date of service: 02/20/2018 EKG Measurement Heart [id number] ID [id number] <Conclusion> Reversed arm leads Sinus bradycardia Minimal voltage criteria for LVH, may be normal variant Abnormal ECG
== END 2018-02-20 15:55 | disposition home or self-care (01) ==
LOC: ED 11:53
DX: R10.31 Right lower quadrant pain (principal); I10 Essential (primary) hypertension; F17.210 Nicotine dependence, cigarettes, uncomplicated
CPT/HCPCS: 74177; 80053; 81001; 83690; 83735; 84702; 85025; 87086; 93005; 99283; J7030